=== PATIENT | male | born 1995 | race Caucasian/White ===

== ENCOUNTER 2016-05-15 17:45 | Emergency (ER) | payer BC ==
[2016-05-15 18:03] VITALS: TEMP 98.2; O2SAT 98
[2016-05-15] MEDS ORDERED: NS 1,000 ML IV ONE (20:19)
[2016-05-15] MEDS ORDERED: ONDANSETRON 4 MG/2 ML VIAL IVP ONE (20:19)
[2016-05-15] MEDS ORDERED: MAALOX/LIDO/HYOSC GI COCKTAIL 55 ML BOTTLE PO ONE (20:19)
[2016-05-15] MEDS ORDERED: FAMOTIDINE 20 MG/NACL 50 ML IV ONE (20:19)
--- NOTE | 2016-05-15 20:21 | EDPHY ---
H & P Stated Complaint: pt reports vomiting "coffe ground emesis " and "black tarry stool " x 1 wee Time Seen by Provider: 05/15/16 20:15 HPI/ROS: CHIEF COMPLAINT: Epigastric pain, coffee-ground emesis and dark stool HISTORY OF PRESENT ILLNESS: Patient is a 20-year-old man who comes to the emergency department complaining of epigastric pain for the last 5 days. He had coffee-ground emesis on Tuesday and Tuesday and black tarry stool was well. States that the pain is beginning to improve. He has been taking antacids initially and they did not seem to help. He then switched to Zofran. He has not had a fever. He has never had any these symptoms before. He does not have any significant past medical history. REVIEW OF SYSTEMS: Constitutional: denies: chills, fever, recent illness, recent injury EENTM: denies: blurred vision, double vision, nose congestion Respiratory: denies: cough, shortness of breath Cardiac: denies: chest pain, irregular heart rate, lightheadedness, palpitations Gastrointestinal/Abdominal: See HPI Genitourinary: denies: dysuria, frequency, hematuria, pain Musculoskeletal: denies: joint pain, muscle pain Skin: denies: lesions, rash, jaundice, bruising Neurological: denies: headache, numbness, paresthesia, tingling, dizziness, weakness Hematologic/Lymphatic: denies: blood clots, easy bleeding, easy bruising Immunologic/allergic: denies: HIV/AIDS, transplant EXAM: GENERAL: Well-appearing, well-nourished and in no acute distress. HEAD: Atraumatic, normocephalic. EYES: Pupils equal round and reactive to light, extraocular movements intact, sclera anicteric, conjunctiva are normal. ENT: TMs normal, nares patent, oropharynx clear without exudates. Moist mucous membranes. NECK: Normal range of motion, supple without lymphadenopathy or JVD. LUNGS: Breath sounds clear to auscultation bilaterally and equal. No wheezes rales or rhonchi. HEART: Regular rate and rhythm without murmurs, rubs or gallops. ABDOMEN: Soft, nontender, normoactive bowel sounds. No guarding, no rebound. No masses appreciated. BACK: No CVA tenderness, no spinal tenderness, step-offs or deformities EXTREMITIES: Normal range of motion, no pitting or edema. No clubbing or cyanosis. NEUROLOGICAL: Cranial nerves II through XII grossly intact. Normal speech, normal gait. 5/5 strength, normal movement in all extremities, normal sensation PSYCH: Normal mood, normal affect. SKIN: Warm, dry, normal turgor, no visible rashes or lesions. Source: Patient Exam Limitations: No limitations - Personal History Current Tetanus/Diphtheria Vaccine: Unsure Current Tetanus Diphtheria and Acellular Pertussis (TDAP): Unsure Tetanus Vaccine Date: < 10 years - Medical/Surgical History Hx Asthma: No Hx Chronic Respiratory Disease: No Hx Diabetes: No Hx Cardiac Disease: No Hx Renal Disease: No Hx Cirrhosis: No Hx Alcoholism: No Hx HIV/AIDS: No Hx Splenectomy or Spleen Trauma: No Other PMH: Lymes disease 2012, [place] 11/2014 with enlarged spleen - Family History Significant Family History: No pertinent family hx - Social History Smoking Status: Never smoked Alcohol Use: Sober Drug Use: None Constitutional: Initial Vital Signs Temperature (C) 36.8 C 05/15/16 18:00 Heart Rate 72 05/15/16 18:00 Respiratory Rate 16 05/15/16 18:00 Blood Pressure 112/67 05/15/16 18:00 O2 Sat (%) 98 05/15/16 18:00 O2 Delivery Mode Room Air Allergies/Adverse Reactions: No Known Allergies Allergy (Unverified 01/04/15 21:00) Home Medications: Medication Instructions Recorded Pantoprazole Sodium [Protonix] 40 mg PO DAILY #30 tab 05/15/16 Medical Decision Making ED Course/Re-evaluation: I performed a rectal exam is negative for blood. I will send off Hemoccult card. We discussed peptic ulcer disease. He is feeling better. He has not had any blood in his stool since he tells me now. His abdominal exam remains benign. I will start him on an an acid and have him follow up with GI. He and his friend agree with this plan. Differential Diagnosis: Partial list of the Differential diagnosis considered include but were not limited to; peptic ulcer disease, gastroenteritis, alcohol poisoning,and although unlikely based on the history and physical exam, I also considered infection, appendicitis, biliary disease. I discussed these differential diagnoses and the plan with the patient as well as the usual and expected course. The patient understands that the diagnosis is provisional and that in medicine we are not always correct and that further workup is often warranted. Usual and customary warnings were given. All of the patient's questions were answered. The patient was instructed to return to the emergency department should the symptoms at all worsen or return, otherwise to followup with the physician as we discussed. - Data Points Laboratory Results: Laboratory Results 05/15/16 20:30 05/15/16 20:30 05/15/16 20:30 WBC 6.50 10^3/uL (3.80-9.50) RBC 4.82 10^6/uL (4.40-6.38) Hgb 14.5 g/dL (13.7-17.5) Hct 41.4 % (40.0-51.0) MCV 85.9 fL (81.5-99.8) MCH 30.1 pg (27.9-34.1) MCHC 35.0 g/dL (32.4-36.7) RDW 11.8 % (11.5-15.2) Plt Count 232 10^3/uL (150-400) MPV 9.5 fL (8.7-11.7) Neut % (Auto) 43.5 % (39.3-74.2) Lymph % (Auto) 45.8 H % (15.0-45.0) [place] % (Auto) 8.6 % (4.5-13.0) Eos % (Auto) 1.4 % (0.6-7.6) Baso % (Auto) 0.5 % (0.3-1.7) Nucleat RBC Rel Count 0.0 % (0.0-0.2) Absolute Neuts (auto) 2.83 10^3/uL (1.70-6.50) Absolute Lymphs (auto) 2.98 10^3/uL (1.00-3.00) Absolute Monos (auto) 0.56 10^3/uL (0.30-0.80) Absolute Eos (auto) 0.09 10^3/uL (0.03-0.40) Absolute Basos (auto) 0.03 10^3/uL (0.02-0.10) Absolute Nucleated RBC 0.00 10^3/uL (0-0.01) Immature Gran % 0.2 % (0.0-1.1) Immature Gran # 0.01 10^3/uL (0.00-0.10) Sodium 143 mEq/L (134-144) Potassium 4.1 mEq/L (3.5-5.2) Chloride 105 mEq/L (97-110) Carbon Dioxide 25 mEq/l (22-31) Anion Gap 13 mEq/L (8-16) BUN 15 mg/dL (7-23) Creatinine 1.0 mg/dL (0.7-1.3) Estimated GFR > 60 Glucose 89 mg/dL (70-100) Calcium 9.5 mg/dL (8.5-10.4) Total Bilirubin 1.2 mg/dL (0.1-1.4) Conjugated Bilirubin 0.4 mg/dL (0.0-0.5) Unconjugated Bilirubin 0.8 mg/dL (0.0-1.1) AST 17 IU/L (17-59) ALT 26 IU/L (21-72) Alkaline Phosphatase 46 IU/L (38-126) Total Protein 7.7 g/dL (6.3-8.2) Albumin 4.6 g/dL (3.5-5.0) Lipase 56.0 IU/L (23-300) Medications Given: Discontinued Medications Famotidine (Pepcid) 20 mg IVP EDNOW ONE Stop: 05/15/16 20:44 Last Admin: 05/15/16 20:57 Dose: 20 mg Sodium Chloride (Ns) 1,000 mls @ 0 mls/hr IV ONCE ONE PRN Reason: Wide Open Stop: 05/15/16 20:20 Last Admin: 05/15/16 20:42 Dose: 1,000 mls Famotidine/Sodium Chloride (Pepcid 20 Mg (Premix)) 50 mls @ 200 mls/hr IV EDNOW ONE Stop: 05/15/16 20:33 Last Admin: 05/15/16 20:42 Dose: Not Given Miscellaneous Medication (Gi Cocktail) 55 ml PO EDNOW ONE Stop: 05/15/16 20:20 Last Admin: 05/15/16 20:42 Dose: 55 ml Ondansetron HCl (Zofran) 4 mg IVP EDNOW ONE Stop: 05/15/16 20:20 Last Admin: 05/15/16 20:42 Dose: 4 mg Departure - Departure Disposition: Home, Routine, Self-Care Clinical Impression: Peptic ulcer disease Condition: Fair Instructions: Peptic Ulcer (ED) Referrals: Karl Grayson MD [Primary Care Provider] - As per Instructions Bruna West MD [Medical Doctor] - As per Instructions Prescriptions: Pantoprazole Sodium [Protonix] 40 mg PO DAILY #30 tab
[2016-05-15] MEDS ORDERED: FAMOTIDINE 20 MG/2 ML SDV ONE (20:31)
[2016-05-15 20:39] LABS: % IMMATURE GRANULYOCYTES 0.2 % (0.0-1.1); ABSOLUTE IMMATURE GRANULOCYTES 0.01 10^3/uL (0.00-0.10); ADD DIFF? NO; ADD MORPH? NO; ADD SCAN? NO; ATYPICAL LYMPHOCYTE FLAG 10 (0-99); FRAGMENT RBC FLAG 0 (0-99); HEMATOCRIT 41.4 % (40.0-51.0); HEMOGLOBIN 14.5 g/dL (13.7-17.5); LEFT SHIFT FLG 0 (0-99); LIPEMIA HEMOLYSIS FLAG 90 (0-99); MEAN CELL HEMOGLOBIN 30.1 pg (27.9-34.1); MEAN CELL VOLUME 85.9 fL (81.5-99.8); MEAN PLATELET VOLUME 9.5 fL (8.7-11.7); PLATELET CLUMPS FLAG 0 (0-99); PLATELET COUNT 232 10^3/uL (150-400); RED BLOOD CELL COUNT 4.82 10^6/uL (4.40-6.38); RED CELL DISTRIBUTION WIDTH 11.8 % (11.5-15.2)
[2016-05-15] MEDS ORDERED: FAMOTIDINE 20 MG/2 ML SDV IVP ONE (20:43)
[2016-05-15 21:29] LABS: ALANINE AMINOTRANSFERASE 26 IU/L (21-72); ALKALINE PHOSPHATASE 46 IU/L (38-126); ANION GAP 13 mEq/L (8-16); ASPARTATE AMINOTRANSFERASE 17 IU/L (17-59); BILIRUBIN,TOTAL 1.2 mg/dL (0.1-1.4); BILIRUBIN-CONJUGATED 0.4 mg/dL (0.0-0.5); BILIRUBIN-UNCONJUGATED 0.8 mg/dL (0.0-1.1); CALCIUM 9.5 mg/dL (8.5-10.4); CARBON DIOXIDE 25 mEq/l (22-31); CHLORIDE 105 mEq/L (97-110); GLOMERULAR FILTRATION RATE > 60; GLUCOSE 89 mg/dL (70-100); POTASSIUM 4.1 mEq/L (3.5-5.2); SODIUM 143 mEq/L (134-144); TOTAL PROTEIN 7.7 g/dL (6.3-8.2)
[2016-05-15 21:46] LABS: ALBUMIN 4.6 g/dL (3.5-5.0)
[2016-05-15 21:48] VITALS: BP 110/66; PULSE 65; RESP 18
== END 2016-05-15 21:53 | disposition home or self-care (01) ==
LOC: EEVIPCON 17:45
DX: K27.9 Peptic ulcer, site unspecified, unspecified as acute or chronic, without hemorrhage or perforation (principal)
CPT/HCPCS: 96374; J2405

== ENCOUNTER 2017-06-29 21:59 | Inpatient (IN) | payer BC ==
--- NOTE | 2017-06-29 22:01 | EDPHY ---
H & P Source: Patient - Personal History Tetanus Vaccine Date: < 10 years - Medical/Surgical History Hx Asthma: No Hx Chronic Respiratory Disease: No Hx Diabetes: No Hx Cardiac Disease: No Hx Renal Disease: No Hx Cirrhosis: No Hx Alcoholism: No Hx HIV/AIDS: No Hx Splenectomy or Spleen Trauma: No Other PMH: Lymes disease 2012, [place] 11/2014 with enlarged spleen - Social History Smoking Status: Never smoked Time Seen by Provider: 06/30/17 08:03 HPI/ROS: HPI CHIEF COMPLAINT: Severe depression, hand superficial laceration HISTORY OF PRESENT ILLNESS: This patient very pleasant 21-year-old male, he suffers from severe depression, presents emergency room with a skin tear to the palm of his right hand. He states he sustained this when he was stabbing a pair of scissors into a piece of wood. He got upset stabbed the scissors into a piece of wood which caused a superficial right palmar hand laceration. He did this we would not stab himself. He has been really depressed. At times he has thoughts of self-harm. Past Medical History: Severe depression Past Surgical History: No recent surgery Social History: [employer] student. Denies drugs alcohol tobacco products. From [place]. Family History: Noncontributory ROS REVIEW OF SYSTEMS: A comprehensive 10 point review of systems is otherwise negative aside from elements mentioned in the history of present illness. Exam Constitutional triage nursing summary reviewed, vital signs reviewed, awake/ alert. Eyes normal conjunctivae and sclera, EOMI, PERRLA. HENT normal inspection, atraumatic, moist mucus membranes, no epistaxis, neck supple/ no meningismus, no raccoon eyes. Respiratory clear to auscultation bilaterally, normal breath sounds, no respiratory distress, no wheezing. Cardiovascular rate normal, regular rhythm, no murmur, no edema, distal pulses normal. Gastrointestinal soft, non-tender, no rebound, no guarding, normal bowel sounds, no distension, no pulsatile mass. Genitourinary no CVA tenderness. Musculoskeletal no midline vertebral tenderness, full range of motion, no calf swelling, no tenderness of extremities, no meningismus, good pulses, neurovascularly intact. Skin right hand palmar surface: At the base of the 2nd digit palmar side there is a skin tear present no laceration. Does not need to be repaired. pink , warm, & dry, no rash, Neurologic awake, alert and oriented x 3, AAOx3, moves all 4 extremities equally, motor intact, sensory intact, CN II-XII intact, normal cerebellar, normal vision, normal speech. Psychiatric flat affect Heme/Lymph/Immune no lymphadenopathy. Differential Diagnosis: Includes but is not limited to in a particular order severe depression, mood disorder, bipolar disorder, substance abuse, self-harm, need for mental health evaluation. Medical Decision Making: At this time this patient be placed on M1 hold. Blood draw for medical clearance. His tetanus shot is up-to-date. His wound will be copiously cleaned and irrigated and dressed appropriately. Re-evaluation: Time of M1 Hold: 221 Reason for M1 hold severe depression with self-harm thoughts of harming himself. (Arley Méndez) Constitutional: Initial Vital Signs Temperature (C) 36.8 C 06/29/17 22:01 Heart Rate 87 06/29/17 22:01 Respiratory Rate 19 06/29/17 22:01 Blood Pressure 123/70 H 06/29/17 22:01 O2 Sat (%) 98 06/29/17 22:01 O2 Delivery Mode Room Air Allergies/Adverse Reactions: No Known Allergies Allergy (Verified 06/29/17 22:01) Home Medications: Medication Instructions Recorded Pantoprazole Sodium [Protonix] 40 mg PO DAILY #30 tab 05/15/16 Amphetamine [Adzenys Xr-Odt] 06/29/17 Brexpiprazole [Rexulti 1 MG (*)] 1 mg PO DAILY 06/29/17 CLONAZEPAM 06/29/17 Ritalin 10mg (*) 06/29/17 ARIPiprazole 06/30/17 SUMAtriptan 06/30/17 ZALEPLON 06/30/17 Medical Decision Making ED Course/Re-evaluation: 0647AM: Patient has been sleeping. No acute events overnight. Patient had mental evaluation is pending inpatient psychiatric hospitalization most likely [address] [place] [address]. Signed over to Dr. Guaman at 7am shift-change (Arley Méndez) Patient remained stable. At 8:00 a.m. Patient has been accepted for admission to [address] psychiatric facility. Indication is suicide and homicide ideation. Appropriate paperwork is filled out (Franky Guaman) - Data Points Laboratory Results: Laboratory Results 06/29/17 22:20 06/29/17 22:20 06/29/17 06/29/17 06/29/17 22:35 22:20 22:20 WBC 7.22 10^3/uL 10^3/uL (3.80-9.50) RBC 5.34 10^6/uL 10^6/uL (4.40-6.38) Hgb 16.1 g/dL g/dL (13.7-17.5) Hct 46.5 % % (40.0-51.0) MCV 87.1 fL fL (81.5-99.8) MCH 30.1 pg pg (27.9-34.1) MCHC 34.6 g/dL g/dL (32.4-36.7) RDW 12.1 % % (11.5-15.2) Plt Count 256 10^3/uL 10^3/uL (150-400) MPV 9.8 fL fL (8.7-11.7) Neut % (Auto) 44.0 % % (39.3-74.2) Lymph % (Auto) 46.3 % H % (15.0-45.0) [place] % (Auto) 7.9 % % (4.5-13.0) Eos % (Auto) 1.1 % % (0.6-7.6) Baso % (Auto) 0.6 % % (0.3-1.7) Nucleat RBC Rel Count 0.0 % % (0.0-0.2) Absolute Neuts (auto) 3.18 10^3/uL 10^3/uL (1.70-6.50) Absolute Lymphs (auto) 3.34 10^3/uL H 10^3/uL (1.00-3.00) Absolute Monos (auto) 0.57 10^3/uL 10^3/uL (0.30-0.80) Absolute Eos (auto) 0.08 10^3/uL 10^3/uL (0.03-0.40) Absolute Basos (auto) 0.04 10^3/uL 10^3/uL (0.02-0.10) Absolute Nucleated RBC 0.00 10^3/uL 10^3/uL (0-0.01) Immature Gran % 0.1 % % (0.0-1.1) Immature Gran # 0.01 10^3/uL 10^3/uL (0.00-0.10) Sodium 145 mEq/L mEq/L (135-145) Potassium 4.4 mEq/L mEq/L (3.5-5.2) Chloride 108 mEq/L mEq/L (97-110) Carbon Dioxide 23 mEq/l mEq/l (22-31) Anion Gap 14 mEq/L mEq/L (8-16) BUN 12 mg/dL mg/dL (7-23) Creatinine 1.0 mg/dL mg/dL (0.7-1.3) Estimated GFR > 60 Glucose 85 mg/dL mg/dL (70-100) Calcium 10.5 mg/dL H mg/dL (8.5-10.4) Salicylates < 1.0 mg/dL L mg/dL (2.0-20.0) Urine Opiates Screen NEGATIVE (NEGATIVE) Acetaminophen < 10 mcg/mL L mcg/mL (10-30) Urine Barbiturates NEGATIVE (NEGATIVE) Ur Phencyclidine Scrn NEGATIVE (NEGATIVE) Ur Amphetamine Screen NON-NEGATIVE H (NEGATIVE) U Benzodiazepines Scrn NEGATIVE (NEGATIVE) Urine Cocaine Screen NEGATIVE (NEGATIVE) U Marijuana (THC) Screen NON-NEGATIVE H (NEGATIVE) Ethyl Alcohol < 10 mg/dL mg/dL (0-10) Medications Given: Discontinued Medications Lorazepam (Ativan) 1 mg PO ONCE ONE Stop: 06/30/17 04:01 Last Admin: 06/30/17 04:06 Dose: 1 mg Olanzapine (Olanzapine) 5 mg PO ONCE ONE Stop: 06/30/17 04:01 Last Admin: 06/30/17 04:07 Dose: 5 mg Departure - Departure Disposition: [facility] IP Clinical Impression: Depression Qualifiers: Depression Type: major depressive disorder Major depression recurrence: single episode Active/Remission status: currently active Major depression episode severity: severe Psychotic features: without psychotic features Qualified Code(s ): F32.2 - Major depressive disorder, single episode, severe without psychotic features Condition: Fair Referrals: Karl Grayson MD [Primary Care Provider] - As per Instructions
[2017-06-29 22:35] LABS: PLATELET COUNT 256 10^3/uL (150-400)
[2017-06-30] MEDS ORDERED: LORazepam 1 MG TAB PO ONE (04:00)
[2017-06-30] MEDS ORDERED: OLANZapine 5 MG TAB PO ONE (04:00)
[2017-06-30] MEDS ORDERED: MAG HYDROX/AL HYDROX/SIMETH 30 ML UDCUP PO PRN (10:44)
[2017-06-30] MEDS ORDERED: MAGNESIUM HYDROXIDE 30 ML UDCUP PO PRN (10:44)
[2017-06-30] MEDS ORDERED: OLANZapine DISINTEGR 10 MG TAB PO PRN (10:44)
[2017-06-30] MEDS ORDERED: ACETAMINOPHEN 325 MG TAB PO PRN (10:44)
[2017-06-30] MEDS ORDERED: SUMAtriptan 25 MG TAB PO PRN (10:46)
[2017-06-30] MEDS ORDERED: clonazePAM 0.5 MG TAB PO PRN (10:46)
[2017-06-30] MEDS ORDERED: PANTOPRAZOLE SODIUM 40 MG TAB PO PRN (10:46)
[2017-06-30] MEDS ORDERED: clonazePAM 0.5 MG TAB PO ONE (10:46)
[2017-06-30] MEDS ORDERED: hydrOXYzine HCL 25 MG TAB PO PRN (10:47)
[2017-06-30] MEDS ORDERED: NICOTINE 14 MG/24 HR PATCH TD PRN (11:09)
[2017-06-30] MEDS ORDERED: NICOTINE POLACRILEX 2 MG GUM B PRN (11:10)
[2017-06-30] MEDS ORDERED: QUEtiapine FUMARATE 25 MG TAB PO ONE (15:24)
[2017-06-30] MEDS ORDERED: QUEtiapine FUMARATE 25 MG TAB PO PRN (15:25)
[2017-06-30] MEDS ORDERED: clonazePAM 0.5 MG TAB ONE (16:01)
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
[2017-06-30] MEDS: QUEtiapine FUMARATE 50 MG TAB PO SCH (20:09)
[2017-06-30] MEDS: clonazePAM 0.5 MG TAB PO SCH (20:09)
[2017-07-01] MEDS: PANTOPRAZOLE SODIUM 40 MG TAB PO SCH (08:12)
--- NOTE | 2017-07-01 08:21 | GCON ---
[f rep st] CONSULTATION DATE OF CONSULTATION: 07/01/2017 REASON FOR CONSULTATION: I was asked by Dr. Torres to see this patient in regard to his medical pro blems. HISTORY OF PRESENT ILLNESS: This is a 21-year-old man with a history of depression, who was admitted to [facility] on an M1 hold, after presenting to the emergency department complaining of depr ession. He also had a self-inflicted hand laceration. He is specifically denying any current medica l problems and has a negative review of systems including headache, runny nose, chest pain, shortness of breath, nausea, new rash, dysuria. He has been overall healthy. He has not had any surgeries in the past either. PAST MEDICAL/SURGICAL HISTORY: Depression. MEDICATIONS: Please see medication reconciliation. ALLERGIES: No known drug allergies. FAMILY HISTORY: He denies. SOCIAL HISTORY: Smokes marijuana every other day. He occasionally drinks alcohol. 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 REVIEW OF SYSTEMS: A 10-point review of systems is conducted and is negative except per HPI. PHYSICAL EXAM: VITAL SIGNS: Blood pressure 109/54, last heart rate is recorded as 113, however, whe n I am seeing him, it is more like 70-80. Respiration rate is 18, saturating 98% on room air, temper ature 36.8. GENERAL: The patient is a pleasant man who is resting comfortably, in no acute distress . HEENT: Shows him to be normocephalic, atraumatic. CARDIOVASCULAR: Regular rate and rhythm. No murmurs, rubs, or gallops. PULMONARY: Lungs clear to auscultation bilaterally. ABDOMEN: Soft, non tender, nondistended. SKIN: No rash. EXAM: No Crystal. NEUROLOGIC: Shows him to be alert and o riented x3. He has 5/5 strength in his upper extremities as well as lower extremities. Sensation is intact in upper and lower extremities. PSYCHIATRIC EXAM: Shows him to have a normal mood and affec t. LABS: CBC is normal. Basic metabolic panel is normal. Lipid panel is normal. He is now negative f or amphetamines, negative for marijuana. Alcohol level is negative. DATA: 1. I reviewed his chart including his emergency department note. 2. I reviewed an abdominal CT from 2015, which was normal. IMPRESSION AND PLAN: [id number] man admitted to Behavioral Health. 1. Tachycardia: I believe that this is resolved. He did have a negative amphetamine screen. I do not have any concern that there is any infection, blood clot at play at this point. If this continue s to be an issue, please apprise me of this. 2. Now negative amphetamines: He could attest to this when I saw him. 3. Marijuana use: Cessation counseled. Thank you for involving Hospital Medicine in the care of this patient. Will sign off for now. Disha de santiago re-consult if there are any ongoing issues. /[id number]/MODL
[2017-07-01] MEDS ORDERED: FLU VACC QS 2017-18 (3YR+)/PF 0.5 ML SYR (FLUARIX QUAD) IM ONE (11:00)
[2017-07-01] MEDS ORDERED: clonazePAM 0.5 MG TAB PO ONE (16:42)
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
[2017-07-01] MEDS: clonazePAM 0.5 MG TAB PO SCH (20:48)
[2017-07-01] MEDS: QUEtiapine FUMARATE 50 MG TAB PO SCH (20:49)
[2017-07-02] MEDS: clonazePAM 0.5 MG TAB PO SCH ×2 (08:35→19:51)
[2017-07-02] MEDS: PANTOPRAZOLE SODIUM 40 MG TAB PO SCH (08:35)
--- NOTE | 2017-07-02 16:39 | SOAPPROG ---
SOAP Progress Note Assessment/Plan: Assessment: Per Dr. 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 Recent weight loss and decline in school functioning. Patient appears has some mood lability but is less irritable and reports improved mood but has some sedative withdrawal symptoms (trace tremor, appears flushed/sweaty); patient slept well overnight, now eating food, and reports reduced but continued racing thoughts; denies SI or HI today. Plan: Patient is on short term certification Continue Seroquel 50mg PO QHS for bipolar disorder Klonopin taper: 0.5mg BID today, then 0.25mg QAM and 0.5mg QHS tomorrow Monitor mood stability, judgment, risk of self harm, sedative withdrawal Discussed dangers of stimulants, cannabis, sedatives product marketing coordinator requested partner remove guns, cannabis, and all prescription meds from home Plan: 07/02/17 16:31 1. When MD and CC met with patient he denied and there was no evidence of racing thoughts, pressured speech, elated or elevated mood, increased goal- directed activity, decreased need for sleep, reckless behavior or impulsivity or grandiose delusions. Patient also denied feeling depressed, sad, hopeless, helpless or worthless. He was future oriented and looking forward to discharge. He denied any thoughts, plan or intent to harm himself. 2. MD and CC met with [facility] for long period of time. She reports that patient's partner, Rush, and [facility] purchased a gun safe and rented a storage unit. They placed all the firearms and hunting knives from patient's residence in the gun safe and will keep it inside storage unit indefinitely. [facility] has already told patient that she would like patient to sell all his guns. She doesn't want patient to have any guns. Patient has agreed to this plan. 3. Patient reports more stable mood, less mood swings, better sleep, improved focus/concentration and ability to plan for future since stopping stimulants and after 48 hrs without cannabis. He denies w/d sxs while on benzo taper. He would like to complete benzo taper in hospital and "not take it (benzos) anymore." 4. Patient tolerating Seroquel w/o physical complaint and no SE's. 5. [facility] has arranged f/u appts with outpatient therapist through [facility] in [place] on 07/13/17 and with psychiatrist, Dr. Buenrostro, also at [facility] on . 6. [facility] told MD she feels "much better" since she removed guns and stored them safely (and patient "does not have combination"). She feels patient would be ready to d/c on Tuesday. Subjective: Met with patient while CC was present, reviewed chart and d/w staff. MD and CC also met with [facility], answered all her questions about treatment. When MD and CC met with patient he denied and there was no evidence of racing thoughts, pressured speech, elated or elevated mood, increased goal-directed activity, decreased need for sleep, reckless behavior or impulsivity or grandiose delusions. Patient also denied feeling depressed, sad, hopeless, helpless or worthless. He was future oriented and looking forward to discharge. He denied any thoughts, plan or intent to harm himself. MD and CC met with [facility] for long period of time. She reports that patient's partner, Rush, and [facility] purchased a gun safe and rented a storage unit. They placed all the firearms and hunting knives from patient's residence in the gun safe and will keep it inside storage unit indefinitely. [facility] has already told patient that she would like patient to sell all his guns. She doesn't want patient to have any guns. Patient has agreed to this plan. Patient reports more stable mood, less mood swings, better sleep, improved focus/concentration and ability to plan for future since stopping stimulants and after 48 hrs without cannabis. He denies w/d sxs while on benzo taper. He would like to complete benzo taper in hospital and "not take it (benzos) anymore." Patient tolerating Seroquel w/o physical complaint and no SE's. Objective: Vital Signs Temp Pulse Resp BP Pulse Ox 36.5 C 100 14 113/68 96 07/02/17 06:00 07/02/17 06:00 07/02/17 06:00 07/02/17 06:00 07/02/17 06:00 MSE: Mood: "Good" Affect: Euthymic, stable TP: Linear TC: No SI/HI, no evidence of psychosis or qiana Insight/Judgment: Improved - Time Spent With Patient Time Spent With Patient: 30" - Pending Discharge Pending Discharge Within 24 Hours: No Pending Discharge Within 48 Hours: Yes Pending Discharge Date: 07/04/17 (Likely to d/c on Tuesday ) Pending Discharge Time: 11:00 ICD10 Worksheet Patient Problems: Problems Problem Status Onset Anxiety Acute Bipolar disorder, unspecified Acute Cannabis use disorder, moderate, dependence Acute Depression Acute Insomnia Acute Sedative withdrawal Acute Suicidal ideation Acute
[2017-07-02] MEDS: QUEtiapine FUMARATE 50 MG TAB PO SCH (20:03)
[2017-07-03] MEDS: clonazePAM 0.5 MG TAB PO SCH ×2 (08:41→18:22)
[2017-07-03] MEDS: PANTOPRAZOLE SODIUM 40 MG TAB PO SCH (08:41)
--- NOTE | 2017-07-03 14:06 | SOAPPROG ---
SOAP Progress Note Assessment/Plan: Assessment: Per Dr. 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 Recent weight loss and decline in school functioning. Patient appears has some mood lability but is less irritable and reports improved mood but has some sedative withdrawal symptoms (trace tremor, appears flushed/sweaty); patient slept well overnight, now eating food, and reports reduced but continued racing thoughts; denies SI or HI today. Plan: Patient is on short term certification Continue Seroquel 50mg PO QHS for bipolar disorder Klonopin taper: 0.5mg BID today, then 0.25mg QAM and 0.5mg QHS tomorrow Monitor mood stability, judgment, risk of self harm, sedative withdrawal Discussed dangers of stimulants, cannabis, sedatives sales support coordinator requested partner remove guns, cannabis, and all prescription meds from home Plan: 07/02/17 16:31 1. When MD and CC met with patient he denied and there was no evidence of racing thoughts, pressured speech, elated or elevated mood, increased goal- directed activity, decreased need for sleep, reckless behavior or impulsivity or grandiose delusions. Patient also denied feeling depressed, sad, hopeless, helpless or worthless. He was future oriented and looking forward to discharge. He denied any thoughts, plan or intent to harm himself. 2. MD and CC met with [facility] for long period of time. She reports that patient's partner, Rush, and [facility] purchased a gun safe and rented a storage unit. They placed all the firearms and hunting knives from patient's residence in the gun safe and will keep it inside storage unit indefinitely. [facility] has already told patient that she would like patient to sell all his guns. She doesn't want patient to have any guns. Patient has agreed to this plan. 3. Patient reports more stable mood, less mood swings, better sleep, improved focus/concentration and ability to plan for future since stopping stimulants and after 48 hrs without cannabis. He denies w/d sxs while on benzo taper. He would like to complete benzo taper in hospital and "not take it (benzos) anymore." 4. Patient tolerating Seroquel w/o physical complaint and no SE's. 5. [facility] has arranged f/u appts with outpatient therapist through [facility] in [place] on 07/13/17 and with psychiatrist, Dr. Buenrostro, also at [facility] on . 6. [facility] told MD she feels "much better" since she removed guns and stored them safely (and patient "does not have combination"). She feels patient would be ready to d/c on Tuesday. 07/03/17 14:02 1. Patient has completed safety plan 2. Aftercare appointments have been arranged at [facility] with therapist and prescriber 3. [facility] has locked up all guns and weapons in safe 4. Patient feels "best" he has in months and is ready for d/c on Tuesday. Subjective: Met with patient, reviewed chart and d/w staff. Met patient with CC present in his room. He says is feeling "best" he has in months. He reports his mood is 7/ 10, which is "way better" than at any time in last 6 months per patient. He has no thoughts, plan or intent to hurt himself or anyone else. Patient blames his low mood and impulsive behavior on stimulants and benzos. He says, "I was on bad medicine...it was harming me more than helping me." Objective: Vital Signs Temp Pulse Resp BP Pulse Ox 36.3 C 75 15 120/58 L 99 07/03/17 06:00 07/03/17 06:00 07/03/17 06:00 07/03/17 06:00 07/03/17 06:00 MSE: Mood: "Much better" Affect: Euthymic TP: Linear TC: No SI/HI, no psychosis Insight/Judgment: Fair - Time Spent With Patient Time Spent With Patient: 20" - Pending Discharge Pending Discharge Within 24 Hours: No Pending Discharge Within 48 Hours: No ICD10 Worksheet Patient Problems: Problems Problem Status Onset Anxiety Acute Bipolar disorder, unspecified Acute Cannabis use disorder, moderate, dependence Acute Depression Acute Insomnia Acute Sedative withdrawal Acute Suicidal ideation Acute
[2017-07-03] MEDS: QUEtiapine FUMARATE 50 MG TAB PO SCH (18:25)
[2017-07-04 06:37] VITALS: BP 127/84; PULSE 72; RESP 14; TEMP 97.9; O2SAT 100
[2017-07-04] MEDS: clonazePAM 0.5 MG TAB PO SCH (08:58)
[2017-07-04] MEDS: PANTOPRAZOLE SODIUM 40 MG TAB PO SCH (08:58)
--- NOTE | 2017-07-04 09:30 | BDS ---
[f rep st] BEHAVIORAL HEALTH DISCHARGE SUMMARY IDENTIFICATION: This is a 21-year-old single white male, who goes by his middle name Dread. He lives with his partner and a dog here in the [place] area. 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 His parents and his younger brother live in [place]. REASON FOR ADMISSION: Please see the initial psychiatric evaluation from June 30, 2017. The patient apparently had developed severe mood swings, severe depression, severe anxiety, severe insomnia, including going 3 days without sleep, as well as racing thoughts and episodic suicidal thinking in February of 2017. At that point, he started receiving psychiatric medications from a psychiatrist in [place], which is near his parents' home in [facility]. The patient apparently has also been using cannabis daily. He had been taking amphetamine, methylphenidate, and up to 2 mg of clonazepam daily prior to admission prescribed by a psychiatrist in [place] that is currently under investigation by the police. The patient apparently was having erratic behavior, severe agitation, throwing knives, stabbing wood with scissors and knives, screaming, yelling, crying, threatening suicide while holding a gun, waving a gun at his partner, and making bizarre statements. HOSPITAL COURSE: The patient was admitted to the inpatient psychiatric unit on an M1 hold. The patient was not willing to stay in the hospital for voluntary treatment, was placed on a short-term certification. The patient reported smoking cannabis nearly daily for many months. The patient gave a history of having bipolar disorder symptoms with anxiety, but had been receiving amphetamine, methylphenidate, and clonazepam from a psychiatrist in [place]. Apparently, the psychiatrist in [place] was under investigation by the police for identity theft, prescription fraud, and insurance fraud and was possibly incarcerated. The patient was given education about bipolar disorder and given information about the risks and benefits of mood stabilizer medications including lithium and Seroquel. The patient preferred to start Seroquel and was started on Seroquel 50 mg at night for bipolar depression. The patient was given information about the dangers of cannabis causing anxiety and psychosis and cognitive impairment. He was also given information about sedatives such as clonazepam causing amnesia, impulsive behavior, and disinhibition. The patient was started on a clonazepam taper. He initially had 0.5 mg twice a day , then 0.25 mg in the morning and 0.5 mg at night for clonazepam. He did have mild sedative withdrawal symptoms in the first 48 hours on the unit that resolved. The patient initially was dysphoric, agitated, irritable, reported feeling hopeless. He also had poor insight into his recent behaviors and symptoms. On the unit, the patient had a marked improvement. He became more euthymic, more appropriate, had improved sleep. Reported reduction in anxiety, reduction in agitation, reduction in racing thoughts. The patient's partner and the patient's mother, [place], were able to lock all the guns in his house into a safe that the patient will not have access to. They were able to remove his amphetamine, methylphenidate, and previous Klonopin prescription from the home. The patient on the unit was able to attend groups. He outlined an extensive safety plan, outlining the symptoms that were occurring prior to admission, as well as positive activities he can use to manage his emotions as well as outlining numerous coping skills and supports prior to discharge. On the unit, the patient had reported prior to admission having up to 20 pounds weight loss with no appetite. With the Seroquel and discontinuation of his amphetamine and methylphenidate, the patient had improvement in his appetite and was able to eat 3 meals a day. On the unit, the patient had a reduction in irritability and improved affect. He was isolative initially, anxious and irritable initially, but had improved affect and outlook on the future on the unit and was able to attend groups. The patient was agreeable to referral to outpatient mental health treatment. He apparently had a therapist at [facility], was agreeable to see a psychiatrist there after discharge. The patient was given information about the risks of clonazepam withdrawal causing severe anxiety and seizures and was agreeable to have this medication tapered further after discharge. The patient was warned about clonazepam causing amnesia and driving impairment. The patient was counseled to not drink alcohol or use cannabis after discharge. The patient was also counseled about the risks of Seroquel causing metabolic syndrome including diabetes, high cholesterol. He was also counseled about the risks of Seroquel causing tardive dyskinesia. On the unit, the patient did not have any episodes of self-harm or violence or restraints or seclusion. CONDITION ON DISCHARGE: He is an alert white male in no acute distress. He is ambulatory, cooperative, and pleasant. He is thin. He has good eye contact. His affect is euthymic and reactive. His mood is "pretty good." His thoughts are organized with good detail. He denies any thoughts to hurt himself or others. He denies paranoia or hallucinations. He has good memory, good insight , and appropriate judgment. LABS: There are no labs pending. He had a white blood cell count 7.2, hemoglobin 16.1, platelet count 256. Sodium 145, potassium 4.4, creatinine 1.0 , glucose 85, calcium 10.5, hemoglobin A1c 5.0, triglycerides 67, LDL 88, HDL 50 , TSH 2.9. On admission, his urine drug screen was positive for amphetamines and cannabis but negative for other drugs of abuse. His serum alcohol level was negative. Salicylates negative. Acetaminophen negative. PROCEDURES: None. CONSULTS: The patient had a baseline exam by the hospitalist, Dr. Yeboah, on July 01, 2017. ADVANCE DIRECTIVES: The patient declined to have an advance directive. NICOTINE USE DISORDER SCREENING: The patient denied regular use of nicotine. ALCOHOL USE DISORDER SCREENING: The patient denied regular use of alcohol. METABOLIC SCREENING: The patient had a normal glucose, hemoglobin A1c, and lipid panel. He was counseled about the risks of Seroquel causing metabolic syndrome. DISCHARGE DIAGNOSES: Unspecified bipolar disorder, Cannabis use disorder, severe, Sedative Withdrawal, mild Stimulant or amphetamine related anxiety disorder, Stimulant or amphetamine related insomnia, Stimulant and cannabis related anxiety disorder, Suicidal ideation prior to admission. DISCHARGE MEDICATIONS: Seroquel 50 mg by mouth at bedtime for bipolar depression and clonazepam taper 0.25 mg by mouth in the morning and 0.5 mg by mouth at bedtime for 10 days, then 0.5 mg by mouth at bedtime for 10 days, then 0.25 mg by mouth at bedtime for 10 days and then stop. The patient is also on Protonix 40 mg daily for history of gastroesophageal reflux disease and peptic ulcer disease. DISCHARGE INSTRUCTIONS: The patient is leaving the unit with his partner and his mother from [place]. They will assist the patient in monitoring his medication compliance, restricting his access to large amounts of medication, and assisting him in getting an outpatient followup. REFERRALS: The patient has a therapist at [facility]. He also has a psychiatry appointment with Dr. Buenrostro at [facility]. Both of them are next week. OTHER INSTRUCTIONS: Patient was counseled about the risks of clonazepam causing driving impairment if taken during the day. He was also counseled that he would need to have his blood sugar and lipid panel rechecked in 1 month. LEGAL STATUS: The patient was admitted on an M1 hold. He declined to receive treatment on the inpatient unit on a voluntary basis and was placed on a short- term certification. This will be terminated upon discharge so the patient will be a voluntary patient as an outpatient. The patient was also given a letter stating the dates he was in the hospital for his school as well as information about case management at [facility] regarding transitioning back into school. /[id number]
== END 2017-07-04 12:55 | disposition home or self-care (01) | DRG 885 ==
LOC: BBEH 06-30 09:15
PROVIDERS: ADMIT Psychiatry & Neurology Psychiatry
DX: F31.9 Bipolar disorder, unspecified (principal); F51.05 Insomnia due to other mental disorder; F40.10 Social phobia, unspecified; F15.24 Other stimulant dependence with stimulant-induced mood disorder; F12.280 Cannabis dependence with cannabis-induced anxiety disorder; R45.851 Suicidal ideations; K27.7 Chronic peptic ulcer, site unspecified, without hemorrhage or perforation; Z91.5 Personal history of self-harm; Z81.8 Family history of other mental and behavioral disorders; Z81.1 Family history of alcohol abuse and dependence; Z81.4 Family history of other substance abuse and dependence
CPT/HCPCS: 80305; G0008; G0480